=== PATIENT | male | born 1965 | race Caucasian/White ===

== ENCOUNTER 2025-06-16 18:16 | Emergency (ER) | payer BC, SELFPAY ==
[2025-06-16 18:19] VITALS: BP 178/103; PULSE 58; RESP 16; TEMP 36.8; O2SAT 99
--- OUTSIDE RECORDS SUMMARY | 2025-06-16 18:19 | XMS_ITS | Clinical Summary ---
Author Organization [facility] Address [address] [place] [address] Care Team Providers Care Hand Or Machine Paster Name Role Phone Unavailable Primary Care Provider Unavailabl e Social History Tobacco Use Types Packs/Day Years Used Date Smoking Tobacco: Never Assessed Sex and Gender Information Value Date Recorded Sex Assigned at Not on file Legal Sex Male 4:15 PM CDT Gender Identity Not on file Sexual Orientation Not on file Plan of Treatment Health Maintenance Due Date Last Done Comments Colorectal Cancer Screening Colonoscopy (10 Years) 1967 Annual Physical 1970 Hepatitis C 1985 DTaP, Tdap and Td Vaccines ( 1 - Tdap) 1986 Hepatitis B Vaccines (1 of 3 - 19+ 3-dose series) 1986 Pneumococcal Vaccine: 50+ Ye ars (1 of 1 - PCV) 2017 Zoster Vaccines (1 of 2) 2017 COVID-19 Vaccine (2023-2 5 season) 2024 Meningococcal B Vaccine Aged Out No l onger eligible based on patient's age to complete this topic Meningococcal Vaccine Aged Out No anoop carol eligible based on patient's age to complete this topic RSV Immunizations Under 20 Months Aged Out No longer eligible based on patient's age to complete this topic
--- OUTSIDE RECORDS SUMMARY | 2025-06-16 18:19 | XMS_ITS | Clinical Summary ---
Author Organization [facility] Address [id number] [place] [phone] Care Team Providers Care College Administrator Name Role Phone Olu Jackson MD Primary Care Provider Allergies No known active allergies Medications amLODIPine (NORVASC) 10 mg tablet Take 1 tablet (10 mg total) by mouth daily 01/20/2022 Active carvediloL (COREG) 25 mg tablet Take 1 tablet (25 mg total) by mouth 2 (two) times a day 03/07/2022 Active hydroCHLOROthia zide (HYDRODIURIL) 25 mg tablet Take 1 tablet (25 mg total) by mouth daily 03/10/2022 Active levothyroxine (SYNTHROID) 100 mcg tablet Take 1.5 tablets (150 mcg total) by mouth daily 03/14/2022 Active rosuvastatin (CRESTOR) 40 mg tablet Take 1 tablet (40 mg total) by mouth daily 02/22/2022 Active Lagevrio, EUA, 200 mg capsule (EUA) TAKE 4 TABLETS (800 MG TOTAL) BY MOUTH 2 (TWO) TIMES A DAY FOR 5 DAYS 07/01/2022 Active Unithroid 175 mcg tablet Take 1 tablet (175 mcg total) by mouth every morning 12/26/2022 Active clopidogreL (PLAVIX) 75 mg tablet Take 1 tablet (75 mg total) by mouth daily States he is starting this med 12/17/23 12/09/2023 Active losartan (COZAAR) 25 mg tablet losartan 25 mg tablet 12/30/2023 Active Active Problems No known active problems Surgical History Surgery Date Site/Laterality Comments CORONARY ANGIOPLASTY 11/02/2019 - 11/01/2020 Medical History Medical History Date Comments Hypertension Skin cancer 2003 Meningitis Encephalitis 1996 Chronic pain disorder Low back pain Social History Tobacco Use Types Packs/Day Years Used Date Smoking Tobacco: Every Day Tobacco Cessation:Ready to Q uit: Not Asked; Counseling Given: Not Answered Comments:States it is now moderate. Only smokes when driving, maybe once in a while on the back porch. AUDIT-C Answer Date Recorded Q1: How often do you have a drink containing alc ohol? 2-4 times a month 02/02/2024 Q2: How many drinks containi ng alcohol do you have on a typical day when you are drinking? 1 or 2 02/02/2024 Q3: How often do you have si x or more drinks on one occasion? 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 Gender Identity Not on file Sexual Orientation Not on file Obstetrics History Last Filed Vital Signs Vital Sign Reading Time Taken Comments Blood Pressure 169/77 02/02/2024 2:30 PM CDT Pulse 61 02/02/2024 2:30 PM CDT Temperature 36.1 C (97 F) 02/02/2024 1:25 PM CDT Respiratory Rate 16 02/02/2024 2:30 PM CDT Oxygen Saturation 97% 02/02/2024 2:30 PM CDT Inhaled Oxygen Concentration - - Weight 127 kg (280 lb) 02/02/2024 1:25 PM CDT Height 182.9 cm (6') 02/02/2024 1:25 PM CDT Body Mass Index 37.97 02/02/2024 1:25 PM CDT Plan of Treatment Health Maintenance Due Date Last Done Comments Colon Cancer Screening-Colonoscopy 1967 Depression Screening 1967 Hepatitis C Screening 1967 Prostate Cancer Screening-PSA 1967 DTaP/Tdap/Td Vaccine (1 - Tdap) 1978 Hepatitis B Screening 1985 Regular Well Visit/Exam 18-64 1985 Pneumococcal vaccine <65 (1 of 2 - PCV) 1986 Zoster Vaccine (1 of 2) 2017 Covid-19 Vaccine ( season) 2024 02/27/2022, 03/27/2021, 02/26/2021 Influenza Vaccine (#1) 2025 08/07/2022, 2018 Goals Goal Patient Goal Type Associated Problems Recent Progress Patient-Stated? Author CCM Chronic Pain Care Plan Chronic Care Management Yes Jenny Beltre RN Note: Problem: Chronic Pain Goals: 1. Minimize further functional decline 2. Maximize quality of life 3. Control pain Strategies: - Activity/exercise program recommendation - Conservative stepwise pain medicine strategy with multi-disciplinary approach - Recommend healthy lifestyle strategies and compensatory methods as needed Reduce the likelihood of falling Lifestyle Yes Jenny Beltre RN Note: Below are four things you can do to prevent falls: Begin an exercise program to improve your leg strength & balance Ask your doctor or pharmacist to review your medicines Get annual eye check-ups & update your eyeglasses Make your home safer by: Removing clutter & tripping hazards Putting railings on all stairs & adding grab bars in the bathroom Having good lighting, especially on stairs Contact your local community or senior center for information on exercise, fall prevention programs, or options for improving home safety. Insurance [facility] [employer] CHO[employer] ANGELINA ACCESS CHOICE Care Teams College Administrator Relationship Specialty Start Date End Date Olu Jackson MD [address] [facility] [place] [address] PCP - General Internal Medicine 04/26/22
--- OUTSIDE RECORDS SUMMARY | 2025-06-16 18:19 | XMS_ITS | Encounter Summary ---
Author Organization [facility] Healthcare Address [address] [place] [address] Care Team Providers Care Fun House Attendant Name Role Phone Olu Jackson MD Primary Care Provider Reason for Visit * Reason Onset Date Comments Post call 12/30/2023 Encounter Details Date Type Department Care Team (Late st Contact Info) Description 12/30/2023 Telephone [facility] Management Center at [facility] [address] [address], [address] [place] [id number] Storm Fitzgerald MD [address] [address] Post call Social History Tobacco Use Types Packs/Day Years Used Date Smoking Tobacco: Every Day Comments:States it is now mo derate. Only smokes when driving, maybe once in a while on the back porch. AUDIT-C Answer Date Recorded Q1: How often do you have a drink containing alc ohol? 2-4 times a month 10/28/2023 Q2: How many drinks containi ng alcohol do you have on a typical day when you are drinking? 1 or 2 10/28/2023 Q3: How often do you have si x or more drinks on one occasion? 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 Author CCM Chronic Pain Care Plan Chronic Care Management Yes Jenny Beltre, RN Note: Problem: Chronic Pain Goals: 1. [...] stairs Contact your local community or senior [facility] for information on exercise, fall prevention programs, or options for improving home safety. documented as of this encounter Visit Diagnoses Not on filedocumented in this encounter Care Teams Fun House Attendant Relationship Specialty Start Date End Date Olu Jackson MD [address] [place] [address] PCP - General Internal Medicine 04/26/22 documented as of this encounter
--- OUTSIDE RECORDS SUMMARY | 2025-06-16 19:25 | XMS_ITS | Clinical Summary ---
Author Organization [facility] Address [address] [place] [address] Care Team Providers Care Print Production Manager Name Role Phone Unavailable Primary Care Provider [...]
--- OUTSIDE RECORDS SUMMARY | 2025-06-16 19:25 | XMS_ITS | Clinical Summary ---
Author Organization 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 Insurance [facility] [employer] CHO[employer] ANGELINA ACCESS CHOICE Care Teams Presiding Judge Relationship Specialty Start Date End Date Olu Jackson MD [address] [facility] [place] [address] PCP - General Internal Medicine 04/26/22
--- OUTSIDE RECORDS SUMMARY | 2025-06-16 19:25 | XMS_ITS | Encounter Summary ---
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 documented as of this encounter Visit Diagnoses Not on filedocumented in this encounter Care Teams Mustanger Relationship Specialty Start Date End Date Olu Jackson MD [address] [facility] [place] [address] PCP - General Internal Medicine 04/26/22 documented as of this encounter
[2025-06-16] MEDS: ACETAMINOPHEN 500 MG TABLET 1000 MG PO (19:53)
[2025-06-16] MEDS: dexAMETHasone SOD PHOS INJ 10 MG/ML 1 ML VIAL IM (19:54)
[2025-06-16 20:00] VITALS: BP 164/93; PULSE 60; RESP 16; TEMP 36.3; O2SAT 99
--- NOTE | 2025-06-17 06:50 | ED_ITS ---
HPI - General Adult General Chief complaint: Unspecified Stated complaint: HAND PAIN Time Seen by Provider: 06/16/25 19:02 History of Present Illness HPI narrative: 60-year-old male coming into the ER for concerns of right hand pain and swelling. Has had multiple evaluations for similar complaints previously and told that he was checked for gout and arthritis as well as having x-rays done that showed no findings. Has responded well to steroids in the past. Has tried some conservative therapies including ibuprofen at home without any relief. Pain and swelling localized to the dorsum of the right hand in several of the proximal metacarpal phalangeal joint areas. No traumatic injuries. Was otherwise in his normal state of health. No fever, chills or systemic symptoms. Has an orthopedic appointment next week to evaluate this. Related Data Allergies Allergy/AdvReac Type Severity Reaction Status Date / Time No Known Allergies Allergy Verified 06/16/25 18:23 Review of Systems Review of Systems: As reviewed above in HPI Exam Narrative: GENERAL: [Well-appearing, well-nourished, and in no acute distress.] HEAD: [Normocephalic, atraumatic.] EYES: [PERRLA and EOMI.] ENT: Nares clear, no rhinorrhea or epistaxis. Mucous membranes moist. NECK: Supple. CHEST: No respiratory distress. 2+ pulses ABDOMEN: [Soft, nondistended], [nontender], [No rigidity or guarding] EXTREMITIES: Isolated swelling to the dorsum of the right hand, some tightness and mildly restricted range of motion with flexion at the MCP joints. No tenderness to palpation. Pronation and supination unrestricted. Continuous Improvement Intern strength 5/5 SKIN: Warm, dry, no rash. NEURO: [No focal deficits]. Alert and oriented [x3.] PSYCH: [Normal mood and affect.] Course Vital Signs Vital signs: Vital Signs Temperature 36.8 C 06/16/25 18:19 Pulse Rate 58 L 06/16/25 18:19 Respiratory Rate 16 06/16/25 18:19 Blood Pressure 178/103 H 06/16/25 18:19 Pulse Oximetry 99 06/16/25 18:19 Oxygen Delivery Room Air 06/16/25 18:19 Temperature 36.3 C L 06/16/25 20:00 Pulse Rate 60 06/16/25 20:00 Respiratory Rate 16 06/16/25 20:00 Blood Pressure 164/93 H 06/16/25 20:00 Pulse Oximetry 99 06/16/25 20:00 Oxygen Delivery Room Air 06/16/25 18:19 Medical Decision Making MDM Narrative Medical decision making narrative: 60-year-old male coming into the ER for concerns of right hand pain and swelling. Has had multiple evaluations for similar complaints previously and told that he was checked for gout and arthritis as well as having x-rays done that showed no findings. Has responded well to steroids in the past. Has tried some conservative therapies including ibuprofen at home without any relief. Pain and swelling localized to the dorsum of the right hand in several of the proximal metacarpal phalangeal joint areas. No traumatic injuries. Was otherwise in his normal state of health. No fever, chills or systemic symptoms. Has an orthopedic appointment next week to evaluate this. Isolated swelling to the dorsum of the right hand, some tightness and mildly restricted range of motion with flexion at the MCP joints. No tenderness to palpation. Pronation and supination unrestricted. Continuous Improvement Intern strength 5/5. Symptoms and exam consistent with some sort of arthropathy, no signs of any traumatic injuries. No historical elements of any concern at this time. He has already been evaluated for gout and had x-rays obtained and has a specialist appointment next week. Offered him steroid medications and treatments to get him to the next several days until he can see a specialist. Comfortable to plan and no need for further workup at this time. Discussed return precautions administered medications and sent home with steroids. Medical Records Medical records reviewed: Yes I reviewed the external patient's medical records. Vital Signs Vital Signs: Vital Signs Temperature 36.8 C 06/16/25 18:19 Pulse Rate 58 L 06/16/25 18:19 Respiratory Rate 16 06/16/25 18:19 Blood Pressure 178/103 H 06/16/25 18:19 Pulse Oximetry 99 06/16/25 18:19 Oxygen Delivery Room Air 06/16/25 18:19 Temperature 36.3 C L 06/16/25 20:00 Pulse Rate 60 06/16/25 20:00 Respiratory Rate 16 06/16/25 20:00 Blood Pressure 164/93 H 06/16/25 20:00 Pulse Oximetry 99 06/16/25 20:00 Oxygen Delivery Room Air 06/16/25 18:19 Discharge Plan Discharge Clinical Impression: Swelling of joint of hand Patient Disposition: Home Condition: Stable Instructions: Antibiotic Form, Arthralgia (ED) Additional Instructions: Take the daily steroid for the next several days until your orthopedics/hand specialty follow-up appointment. Return with any emergent concerns. Take Tylenol and ibuprofen for pain and swelling control. Patient Language: Moroccan Prescriptions: New acetaminophen [Tylenol Extra Strength] 500 mg tablet 1,000 mg PO TID PRN (Reason: pain) Qty: 30 0RF prednisone 50 mg tablet 50 mg PO DAILY 5 Days Qty: 5 0RF Follow-up/Referrals: Manuel,Olu Reddy MD [Primary Care Provider] - Time of Disposition: 19:46
== END 2025-06-16 20:02 | disposition home or self-care (01) ==
PROVIDERS: Emergency Provider Student in an Organized Health Care Education/Training Program; PCP Internal Medicine
DX: M25.441 Effusion, right hand (principal)
CPT/HCPCS: 96372; 99283; A9270; J1100

== ENCOUNTER 2025-06-21 14:47 | Outpatient (CLI) | payer BC, SELFPAY ==
--- NOTE | ~2025-06-21 | XR_ITS ---
XR hand RT min 3V 06/21/2025 15:04 Indication: Right wrist pain Procedure: 3 views right hand Comparison: No prior studies for comparison. Findings: There is mild osteoarthritis of the triscaphe and first carpal metacarpal joints. No fracture, subluxation or dislocation. No significant soft tissue abnormality. No foreign bodies. 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 Reviewed, dictated and finalized at location A. 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
--- OUTSIDE RECORDS SUMMARY | 2025-06-21 15:22 | XMS_ITS | Encounter Summary ---
Author Organization [facility] Healthcare Address [address] [place] [address] Care Team Providers Care Finisher Operator Name Role Phone Olu Jackson MD Primary Care Provider Reason for Visit * Reason Onset Date Comments Post call 12/30/2023 Encounter Details Date Type Department Care Team (Late st Contact Info) Description 12/30/2023 Telephone Pain Management Center at [facility] [address] [address], [address] [place] [phone] Storm Fitzgerald MD [address] [address] Post call Social History Tobacco [...] on file 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 documented as of this encounter Visit Diagnoses Not on filedocumented in this encounter Care Teams Finisher Operator Relationship Specialty Start Date End Date Olu Jackson MD [address] [place] [address] PCP - General Internal Medicine 04/26/22 documented as of this encounter
--- OUTSIDE RECORDS SUMMARY | 2025-06-21 15:22 | XMS_ITS | Clinical Summary ---
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 Insurance [facility] [employer] CHOICE ANGELINA ACCESS CHOICE Care Teams Rollway Worker Relationship Specialty Start Date End Date Olu Jackson MD [address] [facility] [place] [address] PCP - General Internal Medicine 04/26/22
--- OUTSIDE RECORDS SUMMARY | 2025-06-21 15:22 | XMS_ITS | Clinical Summary ---
Author Organization [facility] Address [address] [place] [address] Care Team Providers Care Ultrasound Sonographer Name Role Phone Unavailable Primary Care Provider [...]
== END 2025-06-21 14:48 | disposition home or self-care (01) ==
LOC: ANHIMG 14:51
PROVIDERS: PCP Internal Medicine; Visit Provider Plastic Surgery
DX: M25.531 Pain in right wrist (principal); S63.501A Unspecified sprain of right wrist, initial encounter; X58.XXXA Exposure to other specified factors, initial encounter
CPT/HCPCS: 73130

== ENCOUNTER 2025-08-08 15:25 | Outpatient (CLI) | payer BC, SELFPAY ==
--- NOTE | ~2025-08-08 | MR_ITS ---
EXAMINATION: MR wrist RT wo/w con DATE: 08/08/2025 16:54 INDICATION: Right wrist pain TECHNIQUE: Magnetic resonance imaging (MRI) of the right wrist was performed without intravenous contrast. Sequences performed include axial PD-weighted FSE and PD-weighted FS FSE, coronal PD-weighted FS FSE and T1-weighted SE, and sagittal PD-weighted FS FSE and PD-weighted FSE. COMPARISON: None FINDINGS: Intrinsic ligaments: The lunotriquetral ligament is normal. There is widening of the scapholunate interval with diffuse increased signal throughout the lunotriquetral ligament but no discrete fluid signal intensity tear defect consistent with partial tear. Triangular fibrocartilage complex (TFCC): There is a tear at the ulnar styloid attachment of the triangular fibrocartilage complex. The foveal attachment as well as the dorsal and volar radioulnar ligaments are normal. The ulnar collateral ligament and ulnotriquetral ligament are normal. Extensor wrist: The extensor carpi ulnaris some sheath is torn. Extensor tendons of the wrist are normal. No tenosynovitis. Flexor wrist: The flexor tendons of the wrist are normal. No abnormality in the carpal tunnel with normal median nerve. Guyon's canal: Guyon's canal including the ulnar nerve and artery are normal. Bones/other: Normal marrow signal. No fracture, erosions, avascular necrosis or pathologic marrow replacing process. Mild osteoarthritis at the first carpometacarpal joint. There is prominent enhancing synovitis throughout the distal radioulnar joint. Diffuse subcutaneous edema about the right wrist. IMPRESSION: 1. Partial tear of the scapholunate ligament without discrete fluid signal intensity tear defect but with significant secondary widening of the scapholunate interval. 2. Tear at the ulnar styloid attachment of the triangular fibrocartilage complex. 3. Nonspecific enhancing synovitis at the distal radioulnar joint. 4. Tear of the extensor carpi ulnaris subsheath Reviewed, dictated and finalized at location A. IMPRESSION: 1. Partial tear of the scapholunate ligament without discrete fluid signal inte nsity tear defect but with significant secondary widening of the scapholunate i nterval. 2. Tear at the ulnar styloid attachment of the triangular fibrocartilage comple x. 3. Nonspecific enhancing synovitis at the distal radioulnar joint. 4. Tear of the extensor carpi ulnaris subsheath
--- OUTSIDE RECORDS SUMMARY | 2025-08-08 16:14 | XMS_ITS | Clinical Summary ---
Author Organization [facility] Address [address] [place] [address] Care Team Providers Care Salesperson Recreational Vehicles Name Role Phone Unavailable Primary Care Provider [...] Vaccines (1 of 2) 2017 COVID-19 Vaccine ( - 2023-2 5 season) 2025 Influenza Adult (#1) 2025 Meningococcal B Vaccine Aged Out No l onger eligible based on patient's age to complete this topic Meningococcal Vaccine Aged Out No anoop carol eligible based on patient's age to complete this topic RSV Immunizations Under 20 Months Aged Out No longer eligible based on patient's age to complete this topic
--- OUTSIDE RECORDS SUMMARY | 2025-08-08 16:14 | XMS_ITS | Encounter Summary ---
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 documented as of this encounter Visit Diagnoses Not on filedocumented in this encounter Care Teams Mechanical Design Drafter Relationship Specialty Start Date End Date Olu Jackson MD [address] [facility] [place] [address] PCP - General Internal Medicine 04/26/22 documented as of this encounter
--- OUTSIDE RECORDS SUMMARY | 2025-08-08 16:14 | XMS_ITS | Clinical Summary ---
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 Insurance [facility] [employer] [facility] CHOICE ANGELINA ACCESS CHOICE Care Teams Mutuel Teller Relationship Specialty Start Date End Date Olu Jackson MD [address] [facility] [place] [address] PCP - General Internal Medicine 04/26/22
== END 2025-08-08 15:26 | disposition home or self-care (01) ==
PROVIDERS: PCP Internal Medicine; Visit Provider Plastic Surgery
DX: S63.591A Other specified sprain of right wrist, initial encounter (principal); X58.XXXA Exposure to other specified factors, initial encounter
CPT/HCPCS: 73223; A9577